=== PATIENT | male | born 1970 | race Two or more races ===

== ENCOUNTER 2017-11-04 09:37 | Emergency (ER) | payer BC, MEDICAID ==
[~2017-11-04] VITALS: Ht 170.2 cm; Wt 104.3 kg
[~2017-11-04 09:37] MED LIST: IBUP100S11 PO; IBUP400T21 PO
[2017-11-04] MEDS ORDERED: LORazepam 0.5 MG TAB PO ONE (10:00)
[2017-11-04 10:23] LABS: Basophils # (auto) 0.1 uL; Basophils % (auto) 1.1 % (0.0-2.0); Eosinophils # (auto) 0.4 uL; Eosinophils % (auto) 5.5 % (0.0-7.0); Hematocrit 44.2 % (41.0-53.0); Hemoglobin 14.8 g/dL (13.5-17.5); Lymphocytes # (auto) 1.9 uL; Lymphocytes % (auto) 29.5 % (10.0-50.0); Mean Corpuscular Hemoglobin 30.7 pg (28.0-32.0); Mean Corpuscular Hgb Conc. 33.6 g/dL (32.0-36.0); Mean Corpuscular Volume 91.4 fL (80.0-100.0); Monocytes # (auto) 0.8 uL; Monocytes % (auto) 13.1 % (0.0-12.0); Neutrophils # (auto) 3.3 uL; Neutrophils % (auto) 50.8 % (37.0-80.0); Nucleated Red Blood Cells % 0.1 %; Platelet Count (auto) 193 10^3/uL (140-450); Red Blood Cells 4.83 10^6/uL (4.5-5.90); Red Cell Distribution Width 12.8 % (11.8-14.3); White Blood Cell 6.5 10^3/uL (4.4-10.8)
[2017-11-04 11:05] VITALS: BP 149/57
[2017-11-04 11:09] LABS: Alanine Aminotransferase 67 U/L (16-61); Albumin 3.8 g/dL (3.4-5.0); Alkaline Phosphatase 137 U/L (45-117); Anion Gap 7 (5-15); Aspartate Aminotransferase 33 U/L (15-37); BUN/Creatinine Ratio 19.5; Bilirubin, Total 0.3 mg/dL (0.2-1.0); Blood Urea Nitrogen 16 mg/dL (7-18); Calcium 8.5 mg/dL (8.5-10.1); Carbon Dioxide 27 mmol/L (21-32); Chloride 106 mmol/L (98-107); GFR African American 129 mL/min; GFR Non-African American 107 mL/min; Glucose 89 mg/dL (74-106); Potassium 4.4 mmol/L (3.5-5.1); Sodium 140 mmol/L (136-145); Total Protein 7.9 g/dL (6.4-8.2)
== END 2017-11-04 11:35 | disposition home or self-care (01) ==
LOC: ER 09:37
DX: R07.89 Other chest pain (principal); J45.909 Unspecified asthma, uncomplicated; I10 Essential (primary) hypertension
CPT/HCPCS: 36415; 71045; 80053; 84443; 84484; 85025; 93005